=== PATIENT | male | born 1955 | race Two or more races ===

== ENCOUNTER 2019-04-02 16:52 | Emergency (ER) | payer OTHER ==
[~2019-04-02] VITALS: Ht 170.2 cm; Wt 82.1 kg
[~2019-04-02 16:52] MED LIST: CRESTOR5 MG PO; METOPROLOL SUCC50 MG; RECTICARE30 GM TOP; TRICOR48 MG PO; ULTRACET PO
== END 2019-04-03 11:04 | disposition home or self-care (01) ==
LOC: ER 16:52
DX: N20.1 Calculus of ureter (principal); N28.1 Cyst of kidney, acquired

== ENCOUNTER 2022-04-18 17:49 | Inpatient (IN) | payer OTHER ==
[~2022-04-18] VITALS: Ht 170.2 cm; Wt 85.3 kg
--- NOTE | 2022-04-18 18:21 | NUR ---
SE RECIBE PTE ALERTA ORIENTADO X3. PTE REFIERE TENER DOLOR ABDOMINAL DESDE HOY EN LA TARDE AMARIL[place].PTE REFIERE TYLER TENIDO VOMITOS X3. SE ROMINA S/V Y SE UBICA.
--- NOTE | 2022-04-18 19:41 | NUR ---
SE RECIBE PTE ALERTA ORIENTADO X3. SE ROMINA MUESTRAS DE LABORATORIO USANDO MEDIDAS ASEPTICAS. SE ADMINISTRAN MEDICAMENTOS ARA ORDEN MEDICA. SE ORIENTA PACIENTE SOBRE OBJETIVO DE [place] MEDICO. PENDIENTE CT ABDOMINO & PELVICO.
== END 2022-04-20 17:24 | disposition home or self-care (01) | DRG 694 ==
LOC: ER 17:49 → MEDJ 22:46
PROVIDERS: ADMIT Internal Medicine; ATTEND Internal Medicine
PROC: BW21ZZZ Computerized Tomography (CT Scan) of Abdomen and Pelvis (ICD-10-PCS; principal; 2022-04-18)
DX: N13.2 Hydronephrosis with renal and ureteral calculous obstruction (principal); R31.9 Hematuria, unspecified; I11.9 Hypertensive heart disease without heart failure; Z20.822 Contact with and (suspected) exposure to COVID-19

== ENCOUNTER → 2022-07-21 12:32 | Outpatient (CLI) | payer OTHER | END | disposition home or self-care (01) | LOC: LAB 12:32 | PROVIDERS: ATTEND Urology | DX: L73.2 Hidradenitis suppurativa (principal) ==